=== PATIENT | male | born 1980 | race Caucasian/White ===

== ENCOUNTER → 2019-06-22 | Outpatient (CLI) | payer SELFPAY ==
--- NOTE | 2019-06-22 17:50 | REP ---
LEFT LOWER LEG, TWO VIEWS: Two views of the left lower leg were performed. Tripp fracture of the medial malleolus is noted with lateral displacement of the distal fragment. There is widening of the medial mortise. There is an oblique fracture of the proximal fibula which is mildly displaced. IMPRESSION: Fracture medial malleolus and proximal fibula as discussed above. Electronically Signed by Jose Cruz Knox MD 06/23/2019 03:57 P
--- NOTE | 2019-06-22 23:06 | REP ---
LEFT ANKLE, FOUR VIEWS: Four views of the left ankle are performed. There is a fracture of the medial malleolus, which extends into the ankle mortise with lateral displacement of the fractured malleolus. Medial mortise is widened. Distal fibula appears intact. IMPRESSION: Mildly displaced fracture medial malleolus extends into the tibiotalar joint with widening of the medial mortise. Electronically Signed by Jose Cruz Knox MD 06/23/2019 03:59 P
== END ==
LOC: M ADAMS 15:11
PROVIDERS: ATTEND Physician Assistant
DX: S82.52XA Displaced fracture of medial malleolus of left tibia, initial encounter for closed fracture (principal); S82.62XA Displaced fracture of lateral malleolus of left fibula, initial encounter for closed fracture; X58.XXXA Exposure to other specified factors, initial encounter; Y93.9 Activity, unspecified; Y92.9 Unspecified place or not applicable